=== PATIENT | female | born 1975 | race Caucasian/White ===

== ENCOUNTER 2021-12-12 11:47 | Emergency (ER) | payer MEDICARE, OTHER ==
[2021-12-12 13:11] LABS: RED BLOOD COUNT 4.72 M/UL (4.00-5.10); WHITE BLOOD COUNT 9.2 K/UL (4.5-11.0)
[2021-12-12 13:53] LABS: BUN/CREATININE RATIO 25 (0-10)
== END 2021-12-12 15:45 | disposition home or self-care (01) ==
LOC: ER1 11:47
PROVIDERS: Physician Assistant Medical
DX: S00.03XA Contusion of scalp, initial encounter (principal); W19.XXXA Unspecified fall, initial encounter
CPT/HCPCS: 70450; 71045; 72125; 80053; 81001; 85025; 99284